=== PATIENT | male | born 1995 | race Caucasian/White ===

== ENCOUNTER 2016-08-21 23:45 | Emergency (ER) | payer OTHER ==
[~2016-08-21] VITALS: Ht 182.9 cm; Wt 94.1 kg
[~2016-08-21 23:45] MED LIST: EXEDRIN; TYLENOL #3 300/1 TAB PO
[2016-08-21 23:55] VITALS: BP 117/66
--- NOTE | 2016-08-22 00:02 | NUR ---
PT TAKEN TO BED 8
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
--- NOTE | 2016-08-22 00:05 | NUR ---
Dr. Gallardo evaluating patient at bedside.
[2016-08-22] MEDS ORDERED: LORATADINE 10 MG TAB PO ONE (00:10)
--- NOTE | 2016-08-22 01:03 | NUR ---
Patient discharged with v/s stable. Written and verbal after care instructions given and explained. Patient alert, oriented and verbalized understanding of instructions. Ambulatory with steady gait. All questions addressed prior to discharge. ID band removed. Patient advised to follow up with PMD. Rx of ZYRTEC 10MG AND SYNALAR 0.025% OIT given. Patient educated on indication of medication including possible reaction and side effects. Opportunity to ask questions provided and answered.
[2016-08-22 01:04] VITALS: BP 112/72
== END 2016-08-22 01:03 | disposition home or self-care (01) ==
LOC: MED 23:45
DX: R23.8 Other skin changes (principal)

== ENCOUNTER 2022-12-22 11:35 | Emergency (ER) | payer OTHER ==
[~2022-12-22] VITALS: Ht 182.9 cm; Wt 122.9 kg
[~2022-12-22 11:35] MED LIST changes: -TYLENOL #3 300/1 TAB PO
[2022-12-22 11:40] VITALS: BP 141/77; PULSE 55; RESP 18; TEMP 97.7; O2SAT 96
== END 2022-12-22 12:10 | disposition home or self-care (01) ==
LOC: MED 11:35
DX: S01.112D Laceration without foreign body of left eyelid and periocular area, subsequent encounter (principal); Z48.02 Encounter for removal of sutures; X58.XXXD Exposure to other specified factors, subsequent encounter
CPT/HCPCS: 99281